=== PATIENT | female | born 1955 | race Asian ===

== ENCOUNTER 2017-01-03 07:15 | Day surgery (SDC) | payer BC, OTHER ==
[~2017-01-03] VITALS: Ht 152.4 cm; Wt 50.0 kg
[2017-01-03] MEDS ORDERED: PRILOSEC 20MG20 MG PO (08:03)
[2017-01-03] MEDS ORDERED: CALCIUM 600MG+D1 TAB PO (08:05)
[2017-01-03] MEDS ORDERED: VITAMIN C500 MG PO (08:05)
[2017-01-03] MEDS ORDERED: VITAMINE200 (08:06)
[2017-01-03] MEDS ORDERED: MULTI VITAMINS1 TAB PO (08:06)
[2017-01-03 08:14] VITALS: BP 138/71; PULSE 70; TEMP 97.8
[2017-01-03 08:58] VITALS: BP 118/61; PULSE 69; TEMP 98
[2017-01-03 09:08] VITALS: BP 118/64; PULSE 76
[2017-01-03 09:15] VITALS: BP 121/64; PULSE 76
[2017-01-03 09:30] VITALS: BP 121/66; PULSE 73
== END 2017-01-03 09:45 | disposition home or self-care (01) ==
LOC: SDCO 07:15
DX: K21.9 Gastro-esophageal reflux disease without esophagitis (principal); K30 Functional dyspepsia; I10 Essential (primary) hypertension; Z87.11 Personal history of peptic ulcer disease
CPT/HCPCS: OP; J2250; J3010; J7030